=== PATIENT | female | born 1930 | race Caucasian/White ===

== ENCOUNTER 2018-03-27 00:15 | Inpatient (IN) ==
[2018-03-27] MEDS ORDERED: ASPIRIN 325 MG TABLET PO STA (00:30)
[2018-03-27] MEDS ORDERED: ONDANSETRON 4 MG/2 ML VIAL IV STA (00:30)
[2018-03-27] MEDS ORDERED: NITROGLYCERIN 2% OINT 1 INCH/GM PACK TOP STA (00:30)
[2018-03-27] MEDS ORDERED: FUROSEMIDE 40 MG/4 ML VIAL IV STA ×2 (00:31→01:18)
[2018-03-27] MEDS ORDERED: ALBUTEROL/IPRATROPIUM 3 ML NEB RESP TX STA (00:31)
[2018-03-27] MEDS ORDERED: ENOXAPARIN 100 MG/ML SYRINGE SUBCUT STA (00:33)
[2018-03-27 00:42] LABS: Basophils % 0.2 % (0.0-0.8); Hematocrit 25.5 VOL% (35.7-47.0); Hemoglobin 8.2 GM/DL (12.0-16.0); Immature Granulocytes % 0.5 %; Immature Granulocytes Absolute 0.05 #; Lymphocytes # 0.7 10*3/uL (1.4-4.0); Lymphocytes % 7.1 % (21.3-54.2); Mean Corpuscular HGB Conc 32.2 GM/DL (32-36); Mean Corpuscular Hemoglobin 30 PG (27-34); Mean Corpuscular Volume 93.4 FL (87-102); Mean Platelet Volume 10.4 FL (9.6-12.0); Monocytes # 0.5 10*3/uL (0.11-0.8); Monocytes % 5.8 % (1.7-12.7); Neutrophils % 86.4 % (38.7-73.9); Platelet Count 379 T/CUMM (130-400); Red Blood Count 2.73 MC/CUMM (3.8-5.5); White Blood Count 9.3 T/CUMM (4-12)
[2018-03-27] MEDS ORDERED: ENOXAPARIN 80 MG/0.8 ML SYRINGE SUBCUT ONE (00:42)
[2018-03-27 00:56] LABS: PT Patient Result 10.9 SECS; Partial Thromboplastin Time 27.5 SECS (0-40)
[2018-03-27 01:19] LABS: Albumin 2.3 G/DL (3.4-5.0); Bilirubin,Total 0.4 MG/DL (0.2-1.0); Calcium 7.9 MG/DL (8.5-10.1); Osmolality,Calculated 276.2 MOS/KG (273-304); Potassium 4.9 MMOL/L (3.5-5.1); Total Protein 6.1 G/DL (6.4-8.3)
[2018-03-27] MEDS ORDERED: ACETAMINOPHEN 325 MG TABLET PO PRN (02:11)
[2018-03-27] MEDS ORDERED: GLUCAGON 1 MG VIAL IM PRN (02:11)
[2018-03-27] MEDS ORDERED: ONDANSETRON 4 MG/2 ML VIAL IV PRN (02:11)
[2018-03-27] MEDS: cefTRIAXone 1,000 MG in SYRINGE 1 EACH IV SCH (03:45)
[2018-03-27] MEDS: metroNIDAZOLE INJ 500 MG in PREMIX 1 EACH IV SCH ×3 (03:50→21:35)
[2018-03-27 04:18] LABS: Risk Ratio 2.96; Thyroid Stimulating Hormone 3.11 uIU/ml (0.358-3.74); VLDL CHOLESTEROL 12.2 MG/DL
[2018-03-27] MEDS: ALBUTEROL/IPRATROPIUM 3 ML NEB RESP TX SCH ×3 (08:12→19:25)
[2018-03-27] MEDS: PANTOPRAZOLE 40 MG TABLET PO SCH (08:17)
[2018-03-27] MEDS: INSULIN REGULAR 100 UNIT/ML SUBCUT SCH ×4 (08:17→21:41)
[2018-03-27] MEDS: FUROSEMIDE 40 MG/4 ML VIAL IV SCH ×2 (08:17→15:28)
[2018-03-28] MEDS: ALBUTEROL/IPRATROPIUM 3 ML NEB RESP TX SCH ×4 (00:21→19:30)
[2018-03-28] MEDS: cefTRIAXone 1,000 MG in SYRINGE 1 EACH IV SCH (03:37)
[2018-03-28] MEDS: metroNIDAZOLE INJ 500 MG in PREMIX 1 EACH IV SCH ×2 (03:40→12:42)
[2018-03-28 05:13] LABS: Potassium 4.6 MMOL/L (3.5-5.1)
[2018-03-28 05:22] LABS: Basophils % 0.2 % (0.0-0.8); Eosinophils # 0.1 10*3/uL (0.0-0.87); Eosinophils % 1.3 % (0.00-10.9); Hematocrit 23.5 VOL% (35.7-47.0); Immature Granulocytes % 0.4 %; Immature Granulocytes Absolute 0.03 #; Lymphocytes # 1.7 10*3/uL (1.4-4.0); Lymphocytes % 20.7 % (21.3-54.2); Mean Corpuscular HGB Conc 31.9 GM/DL (32-36); Mean Corpuscular Hemoglobin 30 PG (27-34); Mean Corpuscular Volume 93.3 FL (87-102); Mean Platelet Volume 11.3 FL (9.6-12.0); Monocytes # 0.7 10*3/uL (0.11-0.8); Monocytes % 8.7 % (1.7-12.7); Neutrophils # 5.7 10*3/uL (1.4-7.4); Neutrophils % 68.7 % (38.7-73.9); Platelet Count 358 T/CUMM (130-400); Red Blood Count 2.52 MC/CUMM (3.8-5.5); White Blood Count 8.3 T/CUMM (4-12)
[2018-03-28 05:23] LABS: Hemoglobin 7.5 GM/DL (12.0-16.0)
[2018-03-28] MEDS ORDERED: diphenhydrAMINE CAP 25 MG CAPSULE PO PRN (08:19)
[2018-03-28] MEDS ORDERED: SODIUM CHLORIDE 0.9% 1,000 ML IV PRN ×2 (08:19→10:22)
[2018-03-28] MEDS ORDERED: FUROSEMIDE 20 MG/2 ML VIAL IV SCH (08:30)
[2018-03-28] MEDS ORDERED: ENOXAPARIN 40 MG/0.4 ML SYRINGE SUBCUT SCH (09:00)
[2018-03-28] MEDS ORDERED: NON-FORMULARY MEDICATION (Garlic [Garlic] 1,000 MG) PO SCH (09:00)
[2018-03-28] MEDS ORDERED: NON-FORMULARY MEDICATION (Omeprazole [Omeprazole] 20 MG) PO SCH (09:00)
[2018-03-28] MEDS: INSULIN REGULAR 100 UNIT/ML SUBCUT SCH ×4 (09:19→21:26)
[2018-03-28] MEDS: CALCIUM (CARBONATE)/VITAMIN D 600 MG-400 UNIT TABLET PO SCH (09:50)
[2018-03-28] MEDS: LEVOTHYROXINE 100 MCG TABLET PO SCH (09:50)
[2018-03-28] MEDS: glipiZIDE 10 MG TABLET PO SCH ×2 (09:50→21:24)
[2018-03-28] MEDS: ASCORBIC ACID 500 MG TABLET PO SCH (09:51)
[2018-03-28] MEDS: FUROSEMIDE 40 MG/4 ML VIAL IV SCH ×2 (09:51→16:53)
[2018-03-28] MEDS: FERROUS SULFATE 325 MG TABLET PO SCH ×2 (09:51→21:24)
[2018-03-28] MEDS: MULTIVITAMIN (CENTRUM) TABLET PO SCH (09:51)
[2018-03-28] MEDS: PANTOPRAZOLE 40 MG TABLET PO SCH (09:51)
[2018-03-28] MEDS: CITALOPRAM 20 MG TABLET PO SCH (09:51)
[2018-03-28] MEDS: cloNIDine 0.1 MG TABLET PO SCH ×2 (09:51→21:24)
[2018-03-28] MEDS: ENOXAPARIN 30 MG/0.3 ML SYRINGE SUBCUT SCH (10:02)
[2018-03-28] MEDS ORDERED: MAGNESIUM HYDROXIDE SUSP 30 ML UDCUP PO ONE (10:13)
[2018-03-28] MEDS ORDERED: BISACODYL 5 MG TABLET PO ONE (10:14)
[2018-03-28] MEDS ORDERED: LACTULOSE 20 GM/30 ML UDCUP PO ONE (10:14)
[2018-03-28] MEDS ORDERED: TUBERCULIN SKIN TEST 0.1 ML SYRINGE INTRADERM ONE (11:42)
[2018-03-28] MEDS: ChlordiazePOXIDE/CLIDINIUM 5-2.5 MG CAPSULE PO SCH ×3 (12:42→21:24)
[2018-03-28] MEDS ORDERED: MAGNESIUM SULF RIDER 4 GM in PREMIX 1 EACH IV PRN (13:49)
[2018-03-28] MEDS ORDERED: MAGNESIUM SULF RIDER 2 GM in PREMIX 1 EACH IV PRN (13:49)
[2018-03-28] MEDS: metFORMIN 500 MG TABLET PO SCH (16:53)
[2018-03-28] MEDS: INSULIN GLARGINE 100 UNIT/ML SUBCUT SCH (16:53)
[2018-03-28] MEDS: GABAPENTIN 300 MG CAPSULE PO SCH (21:24)
[2018-03-28] MEDS: SIMVASTATIN 10 MG TABLET PO SCH (21:25)
[2018-03-28] MEDS: DONEPEZIL 5 MG TABLET PO SCH (21:25)
[2018-03-29] MEDS: ALBUTEROL/IPRATROPIUM 3 ML NEB RESP TX SCH ×4 (00:53→19:28)
[2018-03-29 05:17] LABS: Basophils % 0.3 % (0.0-0.8); Eosinophils # 0.2 10*3/uL (0.0-0.87); Eosinophils % 1.9 % (0.00-10.9); Hematocrit 29.7 VOL% (35.7-47.0); Hemoglobin 9.7 GM/DL (12.0-16.0); Immature Granulocytes % 0.5 %; Immature Granulocytes Absolute 0.04 #; Lymphocytes # 1.6 10*3/uL (1.4-4.0); Lymphocytes % 18.6 % (21.3-54.2); Mean Corpuscular HGB Conc 32.7 GM/DL (32-36); Mean Corpuscular Hemoglobin 30 PG (27-34); Mean Platelet Volume 10.9 FL (9.6-12.0); Monocytes # 0.8 10*3/uL (0.11-0.8); Monocytes % 9.3 % (1.7-12.7); Neutrophils % 69.4 % (38.7-73.9); Platelet Count 324 T/CUMM (130-400); Red Blood Count 3.23 MC/CUMM (3.8-5.5); Red Cell Distribution Width 14.2 % (9.3-17.3); White Blood Count 8.6 T/CUMM (4-12)
[2018-03-29 05:43] LABS: Calcium 8.9 MG/DL (8.5-10.1); Osmolality,Calculated 278.5 MOS/KG (273-304); Potassium 3.9 MMOL/L (3.5-5.1)
[2018-03-29] MEDS: LEVOTHYROXINE 100 MCG TABLET PO SCH (06:00)
[2018-03-29] MEDS ORDERED: LOSARTAN 25 MG TABLET PO SCH (09:00)
[2018-03-29] MEDS: CITALOPRAM 20 MG TABLET PO SCH (09:12)
[2018-03-29] MEDS: cloNIDine 0.1 MG TABLET PO SCH ×2 (09:12→20:41)
[2018-03-29] MEDS: FERROUS SULFATE 325 MG TABLET PO SCH ×2 (09:12→20:42)
[2018-03-29] MEDS: PANTOPRAZOLE 40 MG TABLET PO SCH (09:12)
[2018-03-29] MEDS: CALCIUM (CARBONATE)/VITAMIN D 600 MG-400 UNIT TABLET PO SCH (09:12)
[2018-03-29] MEDS: LOSARTAN 25 MG TABLET PO SCH (09:12)
[2018-03-29] MEDS: MULTIVITAMIN (CENTRUM) TABLET PO SCH (09:12)
[2018-03-29] MEDS: ASCORBIC ACID 500 MG TABLET PO SCH (09:12)
[2018-03-29] MEDS: metFORMIN 500 MG TABLET PO SCH ×2 (09:12→17:19)
[2018-03-29] MEDS: INSULIN REGULAR 100 UNIT/ML SUBCUT SCH ×4 (09:13→21:02)
[2018-03-29] MEDS: glipiZIDE 10 MG TABLET PO SCH ×2 (09:13→20:43)
[2018-03-29] MEDS: INSULIN GLARGINE 100 UNIT/ML SUBCUT SCH (09:13)
[2018-03-29] MEDS: ENOXAPARIN 30 MG/0.3 ML SYRINGE SUBCUT SCH (09:14)
[2018-03-29] MEDS: ChlordiazePOXIDE/CLIDINIUM 5-2.5 MG CAPSULE PO SCH ×4 (09:14→21:02)
[2018-03-29] MEDS: FUROSEMIDE 40 MG/4 ML VIAL IV SCH ×2 (09:14→17:19)
[2018-03-29] MEDS: cefTRIAXone 1,000 MG in SYRINGE 1 EACH IV SCH (12:34)
[2018-03-29] MEDS: metroNIDAZOLE INJ 500 MG in PREMIX 1 EACH IV SCH (13:48)
[2018-03-29] MEDS: DONEPEZIL 5 MG TABLET PO SCH (20:42)
[2018-03-29] MEDS: GABAPENTIN 300 MG CAPSULE PO SCH (20:43)
[2018-03-29] MEDS: SIMVASTATIN 10 MG TABLET PO SCH (20:43)
[2018-03-30] MEDS: metroNIDAZOLE INJ 500 MG in PREMIX 1 EACH IV SCH ×2 (00:48→12:45)
[2018-03-30] MEDS: ALBUTEROL/IPRATROPIUM 3 ML NEB RESP TX SCH ×4 (02:05→19:09)
[2018-03-30] MEDS: LEVOTHYROXINE 100 MCG TABLET PO SCH (06:55)
[2018-03-30] MEDS: DEXTROSE 50% 25 GM/50 ML SYRINGE IV PRN (07:05)
[2018-03-30 07:33] LABS: Basophils % 0.3 % (0.0-0.8); Eosinophils # 0.2 10*3/uL (0.0-0.87); Eosinophils % 2.7 % (0.00-10.9); Hematocrit 30.2 VOL% (35.7-47.0); Hemoglobin 9.8 GM/DL (12.0-16.0); Immature Granulocytes % 0.3 %; Immature Granulocytes Absolute 0.03 #; Lymphocytes # 1.2 10*3/uL (1.4-4.0); Lymphocytes % 14.2 % (21.3-54.2); Mean Corpuscular HGB Conc 32.5 GM/DL (32-36); Mean Corpuscular Hemoglobin 30 PG (27-34); Mean Corpuscular Volume 93.2 FL (87-102); Mean Platelet Volume 10.6 FL (9.6-12.0); Monocytes # 0.8 10*3/uL (0.11-0.8); Monocytes % 8.9 % (1.7-12.7); Neutrophils # 6.4 10*3/uL (1.4-7.4); Neutrophils % 73.6 % (38.7-73.9); Platelet Count 347 T/CUMM (130-400); Red Blood Count 3.24 MC/CUMM (3.8-5.5); Red Cell Distribution Width 14.3 % (9.3-17.3); White Blood Count 8.6 T/CUMM (4-12)
[2018-03-30] MEDS: INSULIN REGULAR 100 UNIT/ML SUBCUT SCH ×4 (07:50→20:52)
[2018-03-30] MEDS: metFORMIN 500 MG TABLET PO SCH ×2 (07:51→17:52)
[2018-03-30 07:55] LABS: Calcium 8.6 MG/DL (8.5-10.1); Osmolality,Calculated 283.7 MOS/KG (273-304); Potassium 3.8 MMOL/L (3.5-5.1)
[2018-03-30] MEDS: LOSARTAN 25 MG TABLET PO SCH (08:15)
[2018-03-30] MEDS: FUROSEMIDE 40 MG TABLET PO SCH (08:15)
[2018-03-30] MEDS: PANTOPRAZOLE 40 MG TABLET PO SCH (08:15)
[2018-03-30] MEDS: MULTIVITAMIN (CENTRUM) TABLET PO SCH (08:15)
[2018-03-30] MEDS: CALCIUM (CARBONATE)/VITAMIN D 600 MG-400 UNIT TABLET PO SCH (08:15)
[2018-03-30] MEDS: ChlordiazePOXIDE/CLIDINIUM 5-2.5 MG CAPSULE PO SCH ×4 (08:15→20:50)
[2018-03-30] MEDS: CITALOPRAM 20 MG TABLET PO SCH (08:15)
[2018-03-30] MEDS: INSULIN GLARGINE 100 UNIT/ML SUBCUT SCH (08:16)
[2018-03-30] MEDS: ENOXAPARIN 30 MG/0.3 ML SYRINGE SUBCUT SCH (08:16)
[2018-03-30] MEDS: glipiZIDE 10 MG TABLET PO SCH ×2 (08:16→20:52)
[2018-03-30] MEDS: ASCORBIC ACID 500 MG TABLET PO SCH (08:16)
[2018-03-30] MEDS: FERROUS SULFATE 325 MG TABLET PO SCH ×2 (08:16→20:50)
[2018-03-30] MEDS: cloNIDine 0.1 MG TABLET PO SCH ×2 (08:17→20:51)
[2018-03-30 12:01] LABS: Hypochromasia 1+; Macrocytosis Slight
[2018-03-30 12:02] LABS: Platelet Estimate Adequate; Polychromasia Few
[2018-03-30] MEDS: cefTRIAXone 1,000 MG in SYRINGE 1 EACH IV SCH (12:23)
[2018-03-30] MEDS: DONEPEZIL 5 MG TABLET PO SCH (20:50)
[2018-03-30] MEDS: SIMVASTATIN 10 MG TABLET PO SCH (20:50)
[2018-03-30] MEDS: GABAPENTIN 300 MG CAPSULE PO SCH (20:51)
[2018-03-31] MEDS: ALBUTEROL/IPRATROPIUM 3 ML NEB RESP TX SCH ×4 (00:49→20:29)
[2018-03-31] MEDS: metroNIDAZOLE INJ 500 MG in PREMIX 1 EACH IV SCH ×2 (01:44→13:11)
[2018-03-31 05:28] LABS: Basophils % 0.3 % (0.0-0.8); Eosinophils # 0.3 10*3/uL (0.0-0.87); Eosinophils % 4.1 % (0.00-10.9); Hematocrit 30.9 VOL% (35.7-47.0); Hemoglobin 10.2 GM/DL (12.0-16.0); Immature Granulocytes % 0.4 %; Immature Granulocytes Absolute 0.03 #; Lymphocytes # 1.3 10*3/uL (1.4-4.0); Lymphocytes % 17.6 % (21.3-54.2); Mean Corpuscular Hemoglobin 31 PG (27-34); Mean Corpuscular Volume 92.5 FL (87-102); Mean Platelet Volume 10.6 FL (9.6-12.0); Monocytes # 0.7 10*3/uL (0.11-0.8); Monocytes % 9.8 % (1.7-12.7); Neutrophils % 67.8 % (38.7-73.9); Platelet Count 347 T/CUMM (130-400); Red Blood Count 3.34 MC/CUMM (3.8-5.5); Red Cell Distribution Width 14.2 % (9.3-17.3); White Blood Count 7.3 T/CUMM (4-12)
[2018-03-31] MEDS: LEVOTHYROXINE 100 MCG TABLET PO SCH (06:06)
[2018-03-31 06:08] LABS: Hypochromasia 1+; Macrocytosis Slight; Ovalocytes Slight; Platelet Estimate Adequate
[2018-03-31 06:15] LABS: Calcium 9.4 MG/DL (8.5-10.1); Osmolality,Calculated 279.8 MOS/KG (273-304); Potassium 4.4 MMOL/L (3.5-5.1)
[2018-03-31] MEDS: INSULIN REGULAR 100 UNIT/ML SUBCUT SCH ×3 (09:50→17:24)
[2018-03-31] MEDS: MULTIVITAMIN (CENTRUM) TABLET PO SCH (09:51)
[2018-03-31] MEDS: CALCIUM (CARBONATE)/VITAMIN D 600 MG-400 UNIT TABLET PO SCH (09:51)
[2018-03-31] MEDS: metFORMIN 500 MG TABLET PO SCH ×2 (09:51→17:23)
[2018-03-31] MEDS: ChlordiazePOXIDE/CLIDINIUM 5-2.5 MG CAPSULE PO SCH ×4 (09:51→21:42)
[2018-03-31] MEDS: FERROUS SULFATE 325 MG TABLET PO SCH ×2 (09:52→21:42)
[2018-03-31] MEDS: LOSARTAN 25 MG TABLET PO SCH (09:52)
[2018-03-31] MEDS: cloNIDine 0.1 MG TABLET PO SCH ×2 (09:52→21:42)
[2018-03-31] MEDS: CITALOPRAM 20 MG TABLET PO SCH (09:52)
[2018-03-31] MEDS: INSULIN GLARGINE 100 UNIT/ML SUBCUT SCH ×2 (09:53→13:10)
[2018-03-31] MEDS: FUROSEMIDE 40 MG TABLET PO SCH (09:53)
[2018-03-31] MEDS: ASCORBIC ACID 500 MG TABLET PO SCH (09:53)
[2018-03-31] MEDS: PANTOPRAZOLE 40 MG TABLET PO SCH (09:53)
[2018-03-31] MEDS: glipiZIDE 10 MG TABLET PO SCH ×2 (09:53→13:01)
[2018-03-31] MEDS: ENOXAPARIN 30 MG/0.3 ML SYRINGE SUBCUT SCH (09:58)
[2018-03-31] MEDS: cefTRIAXone 1,000 MG in SYRINGE 1 EACH IV SCH (13:02)
[2018-03-31] MEDS: AMOXICILLIN/CLAV 500 MG TABLET PO SCH (13:19)
[2018-03-31] MEDS ORDERED: INSULIN LISPRO 100 UNIT/ML SUBCUT SCH (21:00)
[2018-03-31] MEDS: GABAPENTIN 300 MG CAPSULE PO SCH (21:42)
[2018-03-31] MEDS: DONEPEZIL 5 MG TABLET PO SCH (21:42)
[2018-03-31] MEDS: SIMVASTATIN 10 MG TABLET PO SCH (21:42)
[2018-03-31] MEDS: DEXTROSE 50% 25 GM/50 ML SYRINGE IV PRN (22:57)
[2018-04-01] MEDS: glipiZIDE 10 MG TABLET PO SCH ×2 (01:30→08:57)
[2018-04-01] MEDS: ALBUTEROL/IPRATROPIUM 3 ML NEB RESP TX SCH ×2 (01:58→07:51)
[2018-04-01] MEDS: AMOXICILLIN/CLAV 500 MG TABLET PO SCH (02:30)
[2018-04-01] MEDS: LEVOTHYROXINE 100 MCG TABLET PO SCH (06:35)
[2018-04-01 07:56] VITALS: BP 123/67
[2018-04-01] MEDS: ENOXAPARIN 30 MG/0.3 ML SYRINGE SUBCUT SCH (08:55)
[2018-04-01] MEDS: CALCIUM (CARBONATE)/VITAMIN D 600 MG-400 UNIT TABLET PO SCH (08:55)
[2018-04-01] MEDS: metFORMIN 500 MG TABLET PO SCH (08:56)
[2018-04-01] MEDS: ChlordiazePOXIDE/CLIDINIUM 5-2.5 MG CAPSULE PO SCH (08:56)
[2018-04-01] MEDS: PANTOPRAZOLE 40 MG TABLET PO SCH (08:56)
[2018-04-01] MEDS: MULTIVITAMIN (CENTRUM) TABLET PO SCH (08:56)
[2018-04-01] MEDS: FERROUS SULFATE 325 MG TABLET PO SCH (08:56)
[2018-04-01] MEDS: CITALOPRAM 20 MG TABLET PO SCH (08:56)
[2018-04-01] MEDS: LOSARTAN 25 MG TABLET PO SCH (08:56)
[2018-04-01] MEDS: ASCORBIC ACID 500 MG TABLET PO SCH (08:57)
[2018-04-01] MEDS: cloNIDine 0.1 MG TABLET PO SCH (08:57)
== END 2018-04-01 11:55 | DRG 291 ==
LOC: EDUNIT# → EDBD → N.ED 00:15 → SUATTDRO 01:37 → N.EDINP 01:37 → N.TELES 01:54
PROVIDERS: ADMIT Internal Medicine; ATTEND Internal Medicine

== ENCOUNTER 2018-05-23 16:56 | Inpatient (IN) ==
[2018-05-23] MEDS ORDERED: ALBUTEROL/IPRATROPIUM 3 ML NEB RESP TX STA (17:23)
[2018-05-23 17:33] LABS: Basophils % 0.5 % (0.0-0.8); Eosinophils # 0.3 10*3/uL (0.0-0.87); Eosinophils % 4.9 % (0.00-10.9); Hematocrit 25.3 VOL% (35.7-47.0); Hemoglobin 8.1 GM/DL (12.0-16.0); Immature Granulocytes % 0.5 %; Immature Granulocytes Absolute 0.03 #; Lymphocytes # 1.7 10*3/uL (1.4-4.0); Lymphocytes % 26.5 % (21.3-54.2); Mean Corpuscular Hemoglobin 29 PG (27-34); Mean Corpuscular Volume 89.7 FL (87-102); Monocytes # 0.6 10*3/uL (0.11-0.8); Monocytes % 9.1 % (1.7-12.7); Neutrophils # 3.7 10*3/uL (1.4-7.4); Neutrophils % 58.5 % (38.7-73.9); Platelet Count 273 T/CUMM (130-400); Red Blood Count 2.82 MC/CUMM (3.8-5.5); White Blood Count 6.4 T/CUMM (4-12)
[2018-05-23 17:53] LABS: Calcium 8.8 MG/DL (8.5-10.1); Osmolality,Calculated 263.4 MOS/KG (273-304); Potassium 4.7 MMOL/L (3.5-5.1)
[2018-05-23] MEDS ORDERED: LEVOFLOXACIN INJ 500 MG in PREMIX 1 EACH IV STA (18:10)
[2018-05-23] MEDS ORDERED: ACETAMINOPHEN 325 MG TABLET PO PRN (18:38)
[2018-05-23] MEDS ORDERED: GLUCAGON 1 MG VIAL IM PRN ×3 (18:38→22:05)
[2018-05-23] MEDS ORDERED: ONDANSETRON 4 MG/2 ML VIAL IV PRN (18:38)
[2018-05-23] MEDS ORDERED: DEXTROSE 50% 25 GM/50 ML VIAL IV PRN ×2 (18:38)
[2018-05-23] MEDS: ALBUTEROL/IPRATROPIUM 3 ML NEB RESP TX SCH ×2 (19:28→20:30)
[2018-05-23] MEDS: INSULIN REGULAR 100 UNIT/ML SUBCUT SCH (22:10)
[2018-05-23] MEDS ORDERED: GABAPENTIN 300 MG CAPSULE PO SCH (22:30)
[2018-05-23] MEDS: ENOXAPARIN 30 MG/0.3 ML SYRINGE SUBCUT SCH (22:38)
[2018-05-23] MEDS: SIMVASTATIN 10 MG TABLET PO SCH (22:38)
[2018-05-23] MEDS: DONEPEZIL 5 MG TABLET PO SCH (22:38)
[2018-05-23] MEDS: PANTOPRAZOLE 40 MG TABLET PO SCH (22:46)
[2018-05-24] MEDS: ALBUTEROL/IPRATROPIUM 3 ML NEB RESP TX SCH ×4 (01:12→19:56)
[2018-05-24] MEDS: LEVOTHYROXINE 100 MCG TABLET PO SCH (07:01)
[2018-05-24 07:30] LABS: Basophils % 0.3 % (0.0-0.8); Eosinophils # 0.2 10*3/uL (0.0-0.87); Eosinophils % 2.3 % (0.00-10.9); Hematocrit 25.1 VOL% (35.7-47.0); Hemoglobin 8.1 GM/DL (12.0-16.0); Immature Granulocytes % 0.6 %; Immature Granulocytes Absolute 0.04 #; Lymphocytes # 1.1 10*3/uL (1.4-4.0); Lymphocytes % 17.4 % (21.3-54.2); Mean Corpuscular HGB Conc 32.3 GM/DL (32-36); Mean Corpuscular Hemoglobin 29 PG (27-34); Mean Corpuscular Volume 89.6 FL (87-102); Mean Platelet Volume 10.9 FL (9.6-12.0); Monocytes # 0.6 10*3/uL (0.11-0.8); Neutrophils # 4.6 10*3/uL (1.4-7.4); Neutrophils % 70.4 % (38.7-73.9); Platelet Count 278 T/CUMM (130-400); Red Cell Distribution Width 14.9 % (9.3-17.3); White Blood Count 6.6 T/CUMM (4-12)
[2018-05-24 08:07] LABS: Calcium 8.7 MG/DL (8.5-10.1); Osmolality,Calculated 270.1 MOS/KG (273-304); Potassium 5.1 MMOL/L (3.5-5.1)
[2018-05-24] MEDS: POLYETHYLENE GLYCOL POWDER 17 GM PACK PO SCH (08:49)
[2018-05-24] MEDS: INSULIN REGULAR 100 UNIT/ML SUBCUT SCH ×3 (08:50→17:47)
[2018-05-24] MEDS: FUROSEMIDE 40 MG TABLET PO SCH (08:51)
[2018-05-24] MEDS: CALCIUM (CARBONATE)/VITAMIN D 600 MG-400 UNIT TABLET PO SCH (08:51)
[2018-05-24] MEDS: FERROUS SULFATE 325 MG TABLET PO SCH ×2 (08:51→20:19)
[2018-05-24] MEDS: CHOLECALCIFEROL 1,000 UNIT TABLET PO SCH (08:51)
[2018-05-24] MEDS: ChlordiazePOXIDE/CLIDINIUM 5-2.5 MG CAPSULE PO SCH ×2 (08:51→12:07)
[2018-05-24] MEDS: MULTIVITAMIN (CENTRUM) TABLET PO SCH (08:51)
[2018-05-24] MEDS: CITALOPRAM 20 MG TABLET PO SCH (08:51)
[2018-05-24] MEDS: cloNIDine 0.1 MG TABLET PO SCH ×2 (08:51→20:19)
[2018-05-24] MEDS: ASPIRIN EC 325 MG TABLET PO SCH (08:51)
[2018-05-24] MEDS: LOSARTAN 25 MG TABLET PO SCH (08:52)
[2018-05-24] MEDS ORDERED: PANTOPRAZOLE 40 MG TABLET PO SCH (09:00)
[2018-05-24] MEDS ORDERED: Garlic [Garlic] 1,000 MG PO SCH (09:00)
[2018-05-24] MEDS: ASCORBIC ACID 500 MG TABLET PO SCH (10:52)
[2018-05-24] MEDS ORDERED: DEXTROSE 10% 1,000 ML IV SCH (16:30)
[2018-05-24] MEDS: LEVOFLOXACIN INJ 250 MG in PREMIX 1 EACH IV SCH (20:17)
[2018-05-24] MEDS: PANTOPRAZOLE 40 MG TABLET PO SCH (20:19)
[2018-05-24] MEDS: DONEPEZIL 5 MG TABLET PO SCH (20:19)
[2018-05-24] MEDS: ENOXAPARIN 30 MG/0.3 ML SYRINGE SUBCUT SCH (20:20)
[2018-05-24] MEDS: SIMVASTATIN 10 MG TABLET PO SCH (20:20)
[2018-05-24] MEDS: SODIUM CHLORIDE 0.9% 1,000 ML IV SCH (22:00)
[2018-05-25] MEDS: ALBUTEROL/IPRATROPIUM 3 ML NEB RESP TX SCH ×4 (00:12→18:59)
[2018-05-25] MEDS: INSULIN REGULAR 100 UNIT/ML SUBCUT SCH ×4 (01:59→16:58)
[2018-05-25] MEDS: LEVOTHYROXINE 100 MCG TABLET PO SCH (06:29)
[2018-05-25 08:48] LABS: Osmolality,Calculated 274.8 MOS/KG (273-304); Potassium 4.7 MMOL/L (3.5-5.1)
[2018-05-25] MEDS: MULTIVITAMIN (CENTRUM) TABLET PO SCH (09:23)
[2018-05-25] MEDS: POLYETHYLENE GLYCOL POWDER 17 GM PACK PO SCH (09:23)
[2018-05-25] MEDS: ASPIRIN EC 325 MG TABLET PO SCH (09:23)
[2018-05-25] MEDS: ASCORBIC ACID 500 MG TABLET PO SCH (09:23)
[2018-05-25] MEDS: CHOLECALCIFEROL 1,000 UNIT TABLET PO SCH (09:23)
[2018-05-25] MEDS: ChlordiazePOXIDE/CLIDINIUM 5-2.5 MG CAPSULE PO SCH ×3 (09:24→18:07)
[2018-05-25] MEDS: LOSARTAN 25 MG TABLET PO SCH (09:24)
[2018-05-25] MEDS: FERROUS SULFATE 325 MG TABLET PO SCH ×2 (09:24→20:20)
[2018-05-25] MEDS: cloNIDine 0.1 MG TABLET PO SCH ×2 (09:24→20:20)
[2018-05-25] MEDS: CITALOPRAM 20 MG TABLET PO SCH (09:24)
[2018-05-25] MEDS: FUROSEMIDE 40 MG TABLET PO SCH (09:25)
[2018-05-25] MEDS: CALCIUM (CARBONATE)/VITAMIN D 600 MG-400 UNIT TABLET PO SCH (09:25)
[2018-05-25] MEDS: LEVOFLOXACIN INJ 250 MG in PREMIX 1 EACH IV SCH (18:07)
[2018-05-25] MEDS: SODIUM CHLORIDE 0.9% 1,000 ML IV SCH (18:12)
[2018-05-25] MEDS: SIMVASTATIN 10 MG TABLET PO SCH (20:20)
[2018-05-25] MEDS: PANTOPRAZOLE 40 MG TABLET PO SCH (20:20)
[2018-05-25] MEDS: DONEPEZIL 5 MG TABLET PO SCH (20:20)
[2018-05-25] MEDS: ENOXAPARIN 30 MG/0.3 ML SYRINGE SUBCUT SCH (20:20)
[2018-05-26] MEDS: ALBUTEROL/IPRATROPIUM 3 ML NEB RESP TX SCH ×4 (00:28→19:18)
[2018-05-26] MEDS: LEVOTHYROXINE 100 MCG TABLET PO SCH (05:54)
[2018-05-26 09:02] LABS: Calcium 8.7 MG/DL (8.5-10.1); Osmolality,Calculated 280.4 MOS/KG (273-304); Potassium 5.2 MMOL/L (3.5-5.1)
[2018-05-26] MEDS: CITALOPRAM 20 MG TABLET PO SCH (10:36)
[2018-05-26] MEDS: CHOLECALCIFEROL 1,000 UNIT TABLET PO SCH (10:36)
[2018-05-26] MEDS: ASPIRIN EC 325 MG TABLET PO SCH (10:37)
[2018-05-26] MEDS: FERROUS SULFATE 325 MG TABLET PO SCH ×2 (10:37→21:57)
[2018-05-26] MEDS: cloNIDine 0.1 MG TABLET PO SCH ×2 (10:37→21:57)
[2018-05-26] MEDS: MULTIVITAMIN (CENTRUM) TABLET PO SCH (10:37)
[2018-05-26] MEDS: LOSARTAN 25 MG TABLET PO SCH (10:37)
[2018-05-26] MEDS: ChlordiazePOXIDE/CLIDINIUM 5-2.5 MG CAPSULE PO SCH ×3 (10:37→16:37)
[2018-05-26] MEDS: FUROSEMIDE 40 MG TABLET PO SCH (10:37)
[2018-05-26] MEDS: ASCORBIC ACID 500 MG TABLET PO SCH (10:37)
[2018-05-26] MEDS: CALCIUM (CARBONATE)/VITAMIN D 600 MG-400 UNIT TABLET PO SCH (10:37)
[2018-05-26] MEDS: POLYETHYLENE GLYCOL POWDER 17 GM PACK PO SCH (10:38)
[2018-05-26] MEDS: INSULIN REGULAR 100 UNIT/ML SUBCUT SCH ×5 (10:38→21:57)
[2018-05-26] MEDS: SODIUM CHLORIDE 0.9% 1,000 ML IV SCH ×2 (11:26→16:36)
[2018-05-26] MEDS: INSULIN GLARGINE 100 UNIT/ML SUBCUT SCH (14:26)
[2018-05-26] MEDS: PIPERACILLIN/TAZOBACTAM 3,375 MG in SODIUM CHLORIDE 0.9% 100 ML IV SCH (16:36)
[2018-05-26] MEDS: glipiZIDE 5 MG TABLET PO SCH (16:37)
[2018-05-26] MEDS: GABAPENTIN 100 MG CAPSULE PO SCH ×2 (17:42→21:56)
[2018-05-26] MEDS: DONEPEZIL 5 MG TABLET PO SCH (21:56)
[2018-05-26] MEDS: PANTOPRAZOLE 40 MG TABLET PO SCH (21:56)
[2018-05-26] MEDS: SIMVASTATIN 10 MG TABLET PO SCH (21:56)
[2018-05-26] MEDS: ENOXAPARIN 30 MG/0.3 ML SYRINGE SUBCUT SCH (21:59)
[2018-05-27] MEDS: ALBUTEROL/IPRATROPIUM 3 ML NEB RESP TX SCH ×4 (00:06→19:56)
[2018-05-27] MEDS: PIPERACILLIN/TAZOBACTAM 3,375 MG in SODIUM CHLORIDE 0.9% 100 ML IV SCH ×3 (01:00→16:36)
[2018-05-27] MEDS: LEVOTHYROXINE 100 MCG TABLET PO SCH (05:00)
[2018-05-27] MEDS: INSULIN REGULAR 100 UNIT/ML SUBCUT SCH ×4 (08:23→22:05)
[2018-05-27] MEDS: POLYETHYLENE GLYCOL POWDER 17 GM PACK PO SCH (09:15)
[2018-05-27] MEDS: CITALOPRAM 20 MG TABLET PO SCH (09:16)
[2018-05-27] MEDS: FUROSEMIDE 40 MG TABLET PO SCH (09:16)
[2018-05-27] MEDS: glipiZIDE 5 MG TABLET PO SCH ×2 (09:16→16:38)
[2018-05-27] MEDS: ASPIRIN EC 325 MG TABLET PO SCH (09:16)
[2018-05-27] MEDS: ASCORBIC ACID 500 MG TABLET PO SCH (09:16)
[2018-05-27] MEDS: CALCIUM (CARBONATE)/VITAMIN D 600 MG-400 UNIT TABLET PO SCH (09:16)
[2018-05-27] MEDS: ChlordiazePOXIDE/CLIDINIUM 5-2.5 MG CAPSULE PO SCH ×3 (09:16→16:38)
[2018-05-27] MEDS: MULTIVITAMIN (CENTRUM) TABLET PO SCH (09:16)
[2018-05-27] MEDS: CHOLECALCIFEROL 1,000 UNIT TABLET PO SCH (09:16)
[2018-05-27] MEDS: cloNIDine 0.1 MG TABLET PO SCH ×2 (09:16→21:18)
[2018-05-27] MEDS: FERROUS SULFATE 325 MG TABLET PO SCH ×2 (09:40→21:18)
[2018-05-27] MEDS: INSULIN GLARGINE 100 UNIT/ML SUBCUT SCH (09:40)
[2018-05-27] MEDS: SIMVASTATIN 10 MG TABLET PO SCH (21:18)
[2018-05-27] MEDS: PANTOPRAZOLE 40 MG TABLET PO SCH (21:18)
[2018-05-27] MEDS: ENOXAPARIN 30 MG/0.3 ML SYRINGE SUBCUT SCH (21:18)
[2018-05-27] MEDS: GABAPENTIN 100 MG CAPSULE PO SCH (21:18)
[2018-05-27] MEDS: DONEPEZIL 5 MG TABLET PO SCH (21:18)
[2018-05-28] MEDS: ALBUTEROL/IPRATROPIUM 3 ML NEB RESP TX SCH ×4 (01:30→20:03)
[2018-05-28] MEDS: PIPERACILLIN/TAZOBACTAM 3,375 MG in SODIUM CHLORIDE 0.9% 100 ML IV SCH ×3 (04:14→21:36)
[2018-05-28] MEDS: LEVOTHYROXINE 100 MCG TABLET PO SCH (06:32)
[2018-05-28] MEDS: INSULIN REGULAR 100 UNIT/ML SUBCUT SCH ×4 (08:05→21:38)
[2018-05-28] MEDS: ASCORBIC ACID 500 MG TABLET PO SCH (08:37)
[2018-05-28] MEDS: MULTIVITAMIN (CENTRUM) TABLET PO SCH (08:37)
[2018-05-28] MEDS: cloNIDine 0.1 MG TABLET PO SCH ×2 (08:37→21:38)
[2018-05-28] MEDS: CITALOPRAM 20 MG TABLET PO SCH (08:38)
[2018-05-28] MEDS: ASPIRIN EC 325 MG TABLET PO SCH (08:38)
[2018-05-28] MEDS: ChlordiazePOXIDE/CLIDINIUM 5-2.5 MG CAPSULE PO SCH ×3 (08:38→16:10)
[2018-05-28] MEDS: FERROUS SULFATE 325 MG TABLET PO SCH ×2 (08:38→21:38)
[2018-05-28] MEDS: FUROSEMIDE 40 MG TABLET PO SCH (08:38)
[2018-05-28] MEDS: CHOLECALCIFEROL 1,000 UNIT TABLET PO SCH (08:38)
[2018-05-28] MEDS: glipiZIDE 5 MG TABLET PO SCH ×2 (08:38→16:10)
[2018-05-28] MEDS: CALCIUM (CARBONATE)/VITAMIN D 600 MG-400 UNIT TABLET PO SCH (08:38)
[2018-05-28] MEDS: POLYETHYLENE GLYCOL POWDER 17 GM PACK PO SCH (08:40)
[2018-05-28] MEDS: INSULIN GLARGINE 100 UNIT/ML SUBCUT SCH ×2 (08:40→12:11)
[2018-05-28 11:38] LABS: Calcium 8.1 MG/DL (8.5-10.1); Osmolality,Calculated 277.4 MOS/KG (273-304); Potassium 4.4 MMOL/L (3.5-5.1)
[2018-05-28] MEDS: SIMVASTATIN 10 MG TABLET PO SCH (21:38)
[2018-05-28] MEDS: DONEPEZIL 5 MG TABLET PO SCH (21:38)
[2018-05-28] MEDS: ENOXAPARIN 30 MG/0.3 ML SYRINGE SUBCUT SCH (21:38)
[2018-05-28] MEDS: PANTOPRAZOLE 40 MG TABLET PO SCH (21:38)
[2018-05-28] MEDS: GABAPENTIN 100 MG CAPSULE PO SCH (21:38)
[2018-05-29] MEDS: ALBUTEROL/IPRATROPIUM 3 ML NEB RESP TX SCH ×4 (00:45→19:49)
[2018-05-29] MEDS: PIPERACILLIN/TAZOBACTAM 3,375 MG in SODIUM CHLORIDE 0.9% 100 ML IV SCH ×3 (04:35→21:11)
[2018-05-29] MEDS: LEVOTHYROXINE 100 MCG TABLET PO SCH (06:21)
[2018-05-29] MEDS: INSULIN GLARGINE 100 UNIT/ML SUBCUT SCH (08:46)
[2018-05-29] MEDS: ChlordiazePOXIDE/CLIDINIUM 5-2.5 MG CAPSULE PO SCH ×3 (08:46→16:51)
[2018-05-29] MEDS: POLYETHYLENE GLYCOL POWDER 17 GM PACK PO SCH (08:46)
[2018-05-29] MEDS: CITALOPRAM 20 MG TABLET PO SCH (08:46)
[2018-05-29] MEDS: INSULIN REGULAR 100 UNIT/ML SUBCUT SCH ×4 (08:46→21:11)
[2018-05-29] MEDS: MULTIVITAMIN (CENTRUM) TABLET PO SCH (08:47)
[2018-05-29] MEDS: ASCORBIC ACID 500 MG TABLET PO SCH (08:47)
[2018-05-29] MEDS: FUROSEMIDE 40 MG TABLET PO SCH (08:47)
[2018-05-29] MEDS: CALCIUM (CARBONATE)/VITAMIN D 600 MG-400 UNIT TABLET PO SCH (08:47)
[2018-05-29] MEDS: cloNIDine 0.1 MG TABLET PO SCH ×2 (08:47→21:10)
[2018-05-29] MEDS: FERROUS SULFATE 325 MG TABLET PO SCH ×2 (08:47→21:10)
[2018-05-29] MEDS: CHOLECALCIFEROL 1,000 UNIT TABLET PO SCH (08:47)
[2018-05-29] MEDS: ASPIRIN EC 325 MG TABLET PO SCH (08:47)
[2018-05-29] MEDS: glipiZIDE 5 MG TABLET PO SCH ×2 (08:47→16:51)
[2018-05-29] MEDS: SODIUM CHLORIDE 0.9% 1,000 ML IV SCH (08:48)
[2018-05-29] MEDS: PANTOPRAZOLE 40 MG TABLET PO SCH (21:10)
[2018-05-29] MEDS: DONEPEZIL 5 MG TABLET PO SCH (21:10)
[2018-05-29] MEDS: GABAPENTIN 100 MG CAPSULE PO SCH (21:10)
[2018-05-29] MEDS: SIMVASTATIN 10 MG TABLET PO SCH (21:10)
[2018-05-29] MEDS: ENOXAPARIN 30 MG/0.3 ML SYRINGE SUBCUT SCH (21:11)
[2018-05-30] MEDS: ALBUTEROL/IPRATROPIUM 3 ML NEB RESP TX SCH ×4 (00:04→18:52)
[2018-05-30] MEDS: PIPERACILLIN/TAZOBACTAM 3,375 MG in SODIUM CHLORIDE 0.9% 100 ML IV SCH ×3 (04:10→20:55)
[2018-05-30 05:12] LABS: Basophils % 0.5 % (0.0-0.8); Eosinophils # 0.3 10*3/uL (0.0-0.87); Eosinophils % 4.7 % (0.00-10.9); Hemoglobin 7.7 GM/DL (12.0-16.0); Immature Granulocytes % 0.2 %; Immature Granulocytes Absolute 0.01 #; Lymphocytes # 1.8 10*3/uL (1.4-4.0); Lymphocytes % 29.5 % (21.3-54.2); Mean Corpuscular HGB Conc 30.8 GM/DL (32-36); Mean Corpuscular Hemoglobin 29 PG (27-34); Mean Corpuscular Volume 92.6 FL (87-102); Mean Platelet Volume 10.7 FL (9.6-12.0); Monocytes # 0.7 10*3/uL (0.11-0.8); Neutrophils # 3.2 10*3/uL (1.4-7.4); Neutrophils % 53.1 % (38.7-73.9); Platelet Count 278 T/CUMM (130-400); Red Cell Distribution Width 16.2 % (9.3-17.3); White Blood Count 5.9 T/CUMM (4-12)
[2018-05-30] MEDS: LEVOTHYROXINE 100 MCG TABLET PO SCH (06:09)
[2018-05-30] MEDS: INSULIN REGULAR 100 UNIT/ML SUBCUT SCH ×4 (08:10→22:45)
[2018-05-30] MEDS: POLYETHYLENE GLYCOL POWDER 17 GM PACK PO SCH (08:48)
[2018-05-30] MEDS: glipiZIDE 5 MG TABLET PO SCH ×2 (08:49→16:42)
[2018-05-30] MEDS: ChlordiazePOXIDE/CLIDINIUM 5-2.5 MG CAPSULE PO SCH ×3 (08:49→17:34)
[2018-05-30] MEDS: MULTIVITAMIN (CENTRUM) TABLET PO SCH (08:49)
[2018-05-30] MEDS: FERROUS SULFATE 325 MG TABLET PO SCH ×2 (08:49→21:11)
[2018-05-30] MEDS: FUROSEMIDE 40 MG TABLET PO SCH (08:49)
[2018-05-30] MEDS: CITALOPRAM 20 MG TABLET PO SCH (08:49)
[2018-05-30] MEDS: CHOLECALCIFEROL 1,000 UNIT TABLET PO SCH (08:49)
[2018-05-30] MEDS: ASCORBIC ACID 500 MG TABLET PO SCH (08:49)
[2018-05-30] MEDS: cloNIDine 0.1 MG TABLET PO SCH ×2 (08:50→21:11)
[2018-05-30] MEDS: ASPIRIN EC 325 MG TABLET PO SCH (08:50)
[2018-05-30] MEDS: CALCIUM (CARBONATE)/VITAMIN D 600 MG-400 UNIT TABLET PO SCH (08:50)
[2018-05-30] MEDS: INSULIN GLARGINE 100 UNIT/ML SUBCUT SCH (09:16)
[2018-05-30] MEDS ORDERED: SODIUM CHLORIDE 0.9% 1,000 ML IV PRN (11:35)
[2018-05-30] MEDS ORDERED: FUROSEMIDE 40 MG/4 ML VIAL IV ONE (14:50)
[2018-05-30 19:35] LABS: Hematocrit 28.2 VOL% (35.7-47.0)
[2018-05-30] MEDS: ENOXAPARIN 30 MG/0.3 ML SYRINGE SUBCUT SCH (21:10)
[2018-05-30] MEDS: PANTOPRAZOLE 40 MG TABLET PO SCH (21:11)
[2018-05-30] MEDS: SIMVASTATIN 10 MG TABLET PO SCH (21:11)
[2018-05-30] MEDS: GABAPENTIN 100 MG CAPSULE PO SCH (21:12)
[2018-05-30] MEDS: DONEPEZIL 5 MG TABLET PO SCH (21:12)
[2018-05-31] MEDS: ALBUTEROL/IPRATROPIUM 3 ML NEB RESP TX SCH ×2 (00:56→07:25)
[2018-05-31] MEDS: PIPERACILLIN/TAZOBACTAM 3,375 MG in SODIUM CHLORIDE 0.9% 100 ML IV SCH (04:19)
[2018-05-31] MEDS: LEVOTHYROXINE 100 MCG TABLET PO SCH (05:58)
[2018-05-31 06:40] LABS: Basophils % 0.6 % (0.0-0.8); Eosinophils # 0.2 10*3/uL (0.0-0.87); Eosinophils % 3.6 % (0.00-10.9); Hematocrit 28.9 VOL% (35.7-47.0); Hemoglobin 9.1 GM/DL (12.0-16.0); Immature Granulocytes % 0.5 %; Immature Granulocytes Absolute 0.03 #; Lymphocytes # 1.7 10*3/uL (1.4-4.0); Lymphocytes % 27.1 % (21.3-54.2); Mean Corpuscular HGB Conc 31.5 GM/DL (32-36); Mean Corpuscular Hemoglobin 28 PG (27-34); Mean Platelet Volume 10.9 FL (9.6-12.0); Monocytes # 0.7 10*3/uL (0.11-0.8); Monocytes % 11.8 % (1.7-12.7); Neutrophils # 3.5 10*3/uL (1.4-7.4); Neutrophils % 56.4 % (38.7-73.9); Platelet Count 272 T/CUMM (130-400); Red Blood Count 3.21 MC/CUMM (3.8-5.5); Red Cell Distribution Width 17.7 % (9.3-17.3); White Blood Count 6.2 T/CUMM (4-12)
[2018-05-31 06:54] LABS: Calcium 8.3 MG/DL (8.5-10.1); Osmolality,Calculated 276.8 MOS/KG (273-304); Potassium 3.9 MMOL/L (3.5-5.1)
[2018-05-31] MEDS: CHOLECALCIFEROL 1,000 UNIT TABLET PO SCH (09:01)
[2018-05-31] MEDS: POLYETHYLENE GLYCOL POWDER 17 GM PACK PO SCH (09:01)
[2018-05-31] MEDS: FERROUS SULFATE 325 MG TABLET PO SCH (09:01)
[2018-05-31] MEDS: CITALOPRAM 20 MG TABLET PO SCH (09:02)
[2018-05-31] MEDS: cloNIDine 0.1 MG TABLET PO SCH (09:02)
[2018-05-31] MEDS: CALCIUM (CARBONATE)/VITAMIN D 600 MG-400 UNIT TABLET PO SCH (09:02)
[2018-05-31] MEDS: ChlordiazePOXIDE/CLIDINIUM 5-2.5 MG CAPSULE PO SCH ×2 (09:02→11:35)
[2018-05-31] MEDS: MULTIVITAMIN (CENTRUM) TABLET PO SCH (09:02)
[2018-05-31] MEDS: glipiZIDE 5 MG TABLET PO SCH (09:02)
[2018-05-31] MEDS: FUROSEMIDE 40 MG TABLET PO SCH (09:04)
[2018-05-31] MEDS: INSULIN GLARGINE 100 UNIT/ML SUBCUT SCH (09:04)
[2018-05-31] MEDS: ASCORBIC ACID 500 MG TABLET PO SCH (09:04)
[2018-05-31] MEDS: INSULIN REGULAR 100 UNIT/ML SUBCUT SCH ×2 (09:09→11:55)
[2018-05-31] MEDS: ASPIRIN EC 325 MG TABLET PO SCH (09:12)
[2018-05-31] MEDS ORDERED: OSELTAMIVIR 30 MG CAPSULE PO SCH (10:36)
[2018-05-31] MEDS: SODIUM CHLORIDE 0.9% 1,000 ML IV SCH (11:22)
[2018-05-31 11:39] VITALS: BP 142/80
== END 2018-05-31 11:56 | DRG 291 ==
LOC: N.ED 16:56 → N.EDINP 18:38 → N.2E 19:50
PROVIDERS: ADMIT Internal Medicine; ATTEND Internal Medicine

== ENCOUNTER 2018-06-08 04:35 | Inpatient (IN) ==
[2018-06-08 05:50] LABS: Basophils % 0.2 % (0.0-0.8); Eosinophils % 0.2 % (0.00-10.9); Hematocrit 32.9 VOL% (35.7-47.0); Hemoglobin 10.1 GM/DL (12.0-16.0); Immature Granulocytes % 0.7 %; Immature Granulocytes Absolute 0.09 #; Lymphocytes # 1.1 10*3/uL (1.4-4.0); Lymphocytes % 8.4 % (21.3-54.2); Mean Corpuscular HGB Conc 30.7 GM/DL (32-36); Mean Corpuscular Hemoglobin 29 PG (27-34); Mean Corpuscular Volume 92.9 FL (87-102); Mean Platelet Volume 11.1 FL (9.6-12.0); Monocytes # 1.1 10*3/uL (0.11-0.8); Monocytes % 8.6 % (1.7-12.7); Neutrophils # 10.7 10*3/uL (1.4-7.4); Neutrophils % 81.9 % (38.7-73.9); Platelet Count 249 T/CUMM (130-400); Red Blood Count 3.54 MC/CUMM (3.8-5.5); Red Cell Distribution Width 16.6 % (9.3-17.3); White Blood Count 13.1 T/CUMM (4-12)
[2018-06-08 06:02] LABS: Albumin 2.5 G/DL (3.4-5.0); Bilirubin,Total 0.5 MG/DL (0.2-1.0); Calcium 9.4 MG/DL (8.5-10.1); Osmolality,Calculated 278.2 MOS/KG (273-304); Potassium 5.2 MMOL/L (3.5-5.1); Total Protein 6.9 G/DL (6.4-8.3)
[2018-06-08] MEDS ORDERED: GLUCAGON 1 MG VIAL IM PRN ×2 (06:32→08:35)
[2018-06-08] MEDS ORDERED: DEXTROSE 50% 25 GM/50 ML VIAL IV PRN (06:32)
[2018-06-08] MEDS ORDERED: ACETAMINOPHEN 325 MG TABLET PO PRN (07:04)
[2018-06-08] MEDS ORDERED: ONDANSETRON 4 MG/2 ML VIAL IV PRN (07:04)
[2018-06-08] MEDS ORDERED: BISACODYL 5 MG TABLET PO PRN (07:04)
[2018-06-08] MEDS ORDERED: DOCUSATE SODIUM 100 MG CAPSULE PO PRN (07:04)
[2018-06-08] MEDS ORDERED: FUROSEMIDE 40 MG/4 ML VIAL IV STA (07:16)
[2018-06-08 07:40] LABS: Thyroid Stimulating Hormone 3.15 uIU/ml (0.358-3.74)
[2018-06-08] MEDS: PANTOPRAZOLE 40 MG TABLET PO SCH ×3 (07:57→21:21)
[2018-06-08 08:26] LABS: Amorphous Crystals,Urine Occasional /HPF (Few); Apearance,Urine CLEAR (Clear); Bilirubin,Urine Negative (Negative); Blood, Urine Negative (Negative); Glucose,Urine (UA) 50 mg/dL (Negative); Hyaline Casts,Urine 1 /LPF (0-3); Ketones,Urine Negative (Negative); Mucus,Urine Occasional /LPF (Occasional); Nitrite,Urine Negative (Negative); Protein,Urine 100 MG/DL; RBC,Urine <1 /HPF (0-4); Urine Color Yellow (Yellow); Urine Urobilinogen < 2.0 EU/DL (0.2-1.0); WBC,Urine <1 /HPF (0-6)
[2018-06-08] MEDS: FUROSEMIDE 40 MG/4 ML VIAL IV SCH ×2 (10:32→16:28)
[2018-06-08] MEDS: FERROUS SULFATE 325 MG TABLET PO SCH ×2 (11:12→21:20)
[2018-06-08] MEDS: cloNIDine 0.1 MG TABLET PO SCH ×2 (11:12→21:21)
[2018-06-08] MEDS: CARVEDILOL 6.25 MG TABLET PO SCH ×2 (11:12→16:55)
[2018-06-08] MEDS ORDERED: POTASSIUM CHLORIDE 20 MEQ TABLET PO ONE (14:00)
[2018-06-08] MEDS: ALBUTEROL/IPRATROPIUM 3 ML NEB RESP TX SCH ×2 (14:17→19:50)
[2018-06-08] MEDS: DONEPEZIL 5 MG TABLET PO SCH (21:20)
[2018-06-08] MEDS: GABAPENTIN 100 MG CAPSULE PO SCH (21:20)
[2018-06-08] MEDS: SIMVASTATIN 10 MG TABLET PO SCH (21:20)
[2018-06-09] MEDS: ALBUTEROL/IPRATROPIUM 3 ML NEB RESP TX SCH ×4 (00:33→20:09)
[2018-06-09 00:46] LABS: Basophils % 0.3 % (0.0-0.8); Eosinophils # 0.2 10*3/uL (0.0-0.87); Hematocrit 26.7 VOL% (35.7-47.0); Hemoglobin 8.4 GM/DL (12.0-16.0); Immature Granulocytes % 0.3 %; Immature Granulocytes Absolute 0.02 #; Lymphocytes # 1.3 10*3/uL (1.4-4.0); Lymphocytes % 23.4 % (21.3-54.2); Mean Corpuscular HGB Conc 31.5 GM/DL (32-36); Mean Corpuscular Hemoglobin 29 PG (27-34); Mean Corpuscular Volume 90.5 FL (87-102); Mean Platelet Volume 11.2 FL (9.6-12.0); Monocytes # 0.6 10*3/uL (0.11-0.8); Monocytes % 11.2 % (1.7-12.7); Neutrophils # 3.5 10*3/uL (1.4-7.4); Neutrophils % 61.8 % (38.7-73.9); Platelet Count 229 T/CUMM (130-400); Red Blood Count 2.95 MC/CUMM (3.8-5.5); Red Cell Distribution Width 16.2 % (9.3-17.3); White Blood Count 5.7 T/CUMM (4-12)
[2018-06-09 01:01] LABS: Calcium 8.7 MG/DL (8.5-10.1); Osmolality,Calculated 281.2 MOS/KG (273-304); Potassium 4.7 MMOL/L (3.5-5.1)
[2018-06-09 01:19] LABS: Calcium 8.8 MG/DL (8.5-10.1); Osmolality,Calculated 282.2 MOS/KG (273-304); Potassium 4.7 MMOL/L (3.5-5.1)
[2018-06-09] MEDS: LEVOTHYROXINE 100 MCG TABLET PO SCH (06:12)
[2018-06-09] MEDS ORDERED: LOSARTAN 25 MG TABLET PO SCH (08:00)
[2018-06-09] MEDS ORDERED: Garlic 1,000 MG PO SCH (08:00)
[2018-06-09] MEDS: POLYETHYLENE GLYCOL POWDER 17 GM PACK PO SCH (10:04)
[2018-06-09] MEDS: CITALOPRAM 20 MG TABLET PO SCH (10:05)
[2018-06-09] MEDS: CALCIUM (CARBONATE)/VITAMIN D 600 MG-400 UNIT TABLET PO SCH (10:05)
[2018-06-09] MEDS: MULTIVITAMIN (CENTRUM) TABLET PO SCH (10:05)
[2018-06-09] MEDS: ASCORBIC ACID 500 MG TABLET PO SCH (10:05)
[2018-06-09] MEDS: ASPIRIN EC 325 MG TABLET PO SCH (10:05)
[2018-06-09] MEDS: CARVEDILOL 6.25 MG TABLET PO SCH ×2 (10:05→16:30)
[2018-06-09] MEDS: PANTOPRAZOLE 40 MG TABLET PO SCH ×2 (10:05→20:27)
[2018-06-09] MEDS: FERROUS SULFATE 325 MG TABLET PO SCH ×2 (10:05→20:26)
[2018-06-09] MEDS: cloNIDine 0.1 MG TABLET PO SCH ×2 (10:06→20:27)
[2018-06-09] MEDS: FUROSEMIDE 40 MG/4 ML VIAL IV SCH ×2 (10:15→15:38)
[2018-06-09] MEDS: CHOLECALCIFEROL 1,000 UNIT TABLET PO SCH (12:40)
[2018-06-09] MEDS: AMOXICILLIN/CLAV 875 MG TABLET PO SCH (12:40)
[2018-06-09] MEDS: sitaGLIPtin 25 MG TABLET PO SCH (12:40)
[2018-06-09] MEDS: HEPARIN 5,000 UNIT/1 ML VIAL SUBCUT SCH ×2 (12:42→20:26)
[2018-06-09] MEDS: INSULIN GLARGINE 100 UNIT/ML SUBCUT SCH (15:37)
[2018-06-09] MEDS: GABAPENTIN 100 MG CAPSULE PO SCH (20:27)
[2018-06-09] MEDS: SIMVASTATIN 10 MG TABLET PO SCH (20:27)
[2018-06-09] MEDS: DONEPEZIL 5 MG TABLET PO SCH (20:27)
[2018-06-10] MEDS: ALBUTEROL/IPRATROPIUM 3 ML NEB RESP TX SCH ×4 (01:17→19:55)
[2018-06-10 02:55] LABS: Basophils % 0.4 % (0.0-0.8); Eosinophils # 0.3 10*3/uL (0.0-0.87); Eosinophils % 4.1 % (0.00-10.9); Hematocrit 26.7 VOL% (35.7-47.0); Hemoglobin 8.3 GM/DL (12.0-16.0); Immature Granulocytes % 0.4 %; Immature Granulocytes Absolute 0.03 #; Lymphocytes # 1.5 10*3/uL (1.4-4.0); Lymphocytes % 20.5 % (21.3-54.2); Mean Corpuscular HGB Conc 31.1 GM/DL (32-36); Mean Corpuscular Hemoglobin 28 PG (27-34); Mean Corpuscular Volume 90.8 FL (87-102); Mean Platelet Volume 11.6 FL (9.6-12.0); Monocytes # 0.8 10*3/uL (0.11-0.8); Monocytes % 10.1 % (1.7-12.7); Neutrophils # 4.8 10*3/uL (1.4-7.4); Neutrophils % 64.5 % (38.7-73.9); Platelet Count 233 T/CUMM (130-400); Red Blood Count 2.94 MC/CUMM (3.8-5.5); White Blood Count 7.4 T/CUMM (4-12)
[2018-06-10 03:27] LABS: Calcium 8.4 MG/DL (8.5-10.1); Osmolality,Calculated 279.5 MOS/KG (273-304); Potassium 4.7 MMOL/L (3.5-5.1)
[2018-06-10] MEDS: HEPARIN 5,000 UNIT/1 ML VIAL SUBCUT SCH ×3 (05:09→20:55)
[2018-06-10] MEDS: AMOXICILLIN/CLAV 875 MG TABLET PO SCH ×3 (06:33→21:40)
[2018-06-10] MEDS: LEVOTHYROXINE 100 MCG TABLET PO SCH (06:34)
[2018-06-10] MEDS: CALCIUM (CARBONATE)/VITAMIN D 600 MG-400 UNIT TABLET PO SCH (08:35)
[2018-06-10] MEDS: sitaGLIPtin 25 MG TABLET PO SCH (08:35)
[2018-06-10] MEDS: ASCORBIC ACID 500 MG TABLET PO SCH (08:35)
[2018-06-10] MEDS: CHOLECALCIFEROL 1,000 UNIT TABLET PO SCH (08:35)
[2018-06-10] MEDS: POLYETHYLENE GLYCOL POWDER 17 GM PACK PO SCH (08:35)
[2018-06-10] MEDS: cloNIDine 0.1 MG TABLET PO SCH ×2 (08:35→20:55)
[2018-06-10] MEDS: MULTIVITAMIN (CENTRUM) TABLET PO SCH (08:36)
[2018-06-10] MEDS: CITALOPRAM 20 MG TABLET PO SCH (08:36)
[2018-06-10] MEDS: FERROUS SULFATE 325 MG TABLET PO SCH ×2 (08:36→20:55)
[2018-06-10] MEDS: INSULIN GLARGINE 100 UNIT/ML SUBCUT SCH (08:36)
[2018-06-10] MEDS: CARVEDILOL 6.25 MG TABLET PO SCH ×2 (08:36→18:30)
[2018-06-10] MEDS: PANTOPRAZOLE 40 MG TABLET PO SCH ×2 (08:36→20:55)
[2018-06-10] MEDS: ASPIRIN EC 325 MG TABLET PO SCH (08:36)
[2018-06-10] MEDS: FUROSEMIDE 40 MG/4 ML VIAL IV SCH ×2 (08:49→20:55)
[2018-06-10] MEDS ORDERED: FUROSEMIDE 40 MG/4 ML VIAL IV ONE (11:18)
[2018-06-10] MEDS ORDERED: ALBUMIN 5% 25 GM in PREMIX 1 EACH IV ONE (12:00)
[2018-06-10] MEDS: metOLazone 2.5 MG TABLET PO SCH (12:27)
[2018-06-10] MEDS ORDERED: INSULIN GLARGINE 100 UNIT/ML SUBCUT ONE ×2 (12:56)
[2018-06-10] MEDS ORDERED: POTASSIUM CHLORIDE 20 MEQ TABLET PO PRN (16:33)
[2018-06-10] MEDS ORDERED: POTASSIUM CHLORIDE RIDER 10 MEQ in PREMIX 1 EACH IV PRN (16:33)
[2018-06-10] MEDS: SIMVASTATIN 10 MG TABLET PO SCH (20:55)
[2018-06-10] MEDS: GABAPENTIN 100 MG CAPSULE PO SCH (20:55)
[2018-06-10] MEDS: DONEPEZIL 5 MG TABLET PO SCH (20:55)
[2018-06-11] MEDS: ALBUTEROL/IPRATROPIUM 3 ML NEB RESP TX SCH ×2 (01:48→07:29)
[2018-06-11 05:16] LABS: Basophils % 0.7 % (0.0-0.8); Eosinophils # 0.4 10*3/uL (0.0-0.87); Eosinophils % 6.3 % (0.00-10.9); Hematocrit 26.6 VOL% (35.7-47.0); Hemoglobin 8.3 GM/DL (12.0-16.0); Immature Granulocytes % 0.5 %; Immature Granulocytes Absolute 0.03 #; Lymphocytes # 1.1 10*3/uL (1.4-4.0); Lymphocytes % 18.9 % (21.3-54.2); Mean Corpuscular HGB Conc 31.2 GM/DL (32-36); Mean Corpuscular Hemoglobin 28 PG (27-34); Mean Corpuscular Volume 90.8 FL (87-102); Mean Platelet Volume 11.5 FL (9.6-12.0); Monocytes # 0.7 10*3/uL (0.11-0.8); Monocytes % 11.4 % (1.7-12.7); Neutrophils # 3.6 10*3/uL (1.4-7.4); Neutrophils % 62.2 % (38.7-73.9); Platelet Count 208 T/CUMM (130-400); Red Blood Count 2.93 MC/CUMM (3.8-5.5); White Blood Count 5.7 T/CUMM (4-12)
[2018-06-11 05:41] LABS: Calcium 8.5 MG/DL (8.5-10.1); Osmolality,Calculated 280.4 MOS/KG (273-304); Potassium 3.7 MMOL/L (3.5-5.1)
[2018-06-11] MEDS: HEPARIN 5,000 UNIT/1 ML VIAL SUBCUT SCH ×2 (05:53→13:22)
[2018-06-11] MEDS: LEVOTHYROXINE 100 MCG TABLET PO SCH (05:54)
[2018-06-11] MEDS ORDERED: INSULIN GLARGINE 100 UNIT/ML SUBCUT SCH (09:00)
[2018-06-11] MEDS: POLYETHYLENE GLYCOL POWDER 17 GM PACK PO SCH (10:00)
[2018-06-11] MEDS: ASPIRIN EC 325 MG TABLET PO SCH (10:02)
[2018-06-11] MEDS: MULTIVITAMIN (CENTRUM) TABLET PO SCH (10:02)
[2018-06-11] MEDS: FUROSEMIDE 40 MG/4 ML VIAL IV SCH (10:03)
[2018-06-11] MEDS: PANTOPRAZOLE 40 MG TABLET PO SCH (10:03)
[2018-06-11] MEDS: AMOXICILLIN/CLAV 875 MG TABLET PO SCH (10:03)
[2018-06-11] MEDS: ASCORBIC ACID 500 MG TABLET PO SCH (10:03)
[2018-06-11] MEDS: FERROUS SULFATE 325 MG TABLET PO SCH (10:03)
[2018-06-11] MEDS: CHOLECALCIFEROL 1,000 UNIT TABLET PO SCH (10:03)
[2018-06-11] MEDS: CITALOPRAM 20 MG TABLET PO SCH (10:05)
[2018-06-11] MEDS: metOLazone 2.5 MG TABLET PO SCH (10:05)
[2018-06-11] MEDS: cloNIDine 0.1 MG TABLET PO SCH (10:05)
[2018-06-11] MEDS: CALCIUM (CARBONATE)/VITAMIN D 600 MG-400 UNIT TABLET PO SCH (10:05)
[2018-06-11] MEDS: CARVEDILOL 6.25 MG TABLET PO SCH (10:05)
[2018-06-11] MEDS: sitaGLIPtin 25 MG TABLET PO SCH (10:06)
[2018-06-11 12:24] VITALS: BP 135/72
== END 2018-06-11 13:25 | DRG 291 ==
LOC: EDBD → EDUNIT# → N.ED 04:35 → N.EDINP 07:04 → SUATTDRO 07:04 → N.EDINP 09:07 → N.5E 09:41
PROVIDERS: ADMIT Family Medicine; ATTEND Emergency Medicine